=== PATIENT | male | born 1970 | race Hispanic/Latino ===

== ENCOUNTER 2016-10-07 20:33 | Emergency (ER) | payer OTHER ==
[~2016-10-07] VITALS: Ht 180.3 cm; Wt 95.5 kg
[~2016-10-07 20:33] MED LIST: CIPR500T95; CYCL5TAB PO; FLA500; LORA10CA PO; NAPR500T5 PO; NPR500T PO; OXYC-176; TRIA10.8 NS
[2016-10-07 20:39] VITALS: BP 130/89; PULSE 96; RESP 22; O2SAT 97
--- NOTE | 2016-10-07 21:05 | ED.REPORT ---
HPI-General Illness Date of Service Oct 07, 2016 ED Provider: Benny Mckeon MD Mr. Reddy is a 46 y/o man who presents today for generalize aching and malaise and non-productive cough for the past 2-3 days. He also has wheezing, pleuritic chest pain, chills, and subjective fever and chills. His chest feels tight when he coughs retrosternal and on the right side of his ribs. His sons have runny nose and went to the doctor and got OTC medications. He has urinary frequency. He does not have dysuria, hematuria, dyspnea, abdominal pain, diarrhea, or vomiting. He did not get the influenza vaccine this year. He has not taken any ibuprofen or Tylenol today. Nursing Notes Stated Complaint: FLU SYMPTONS Chief Complaint: FLU/Cold Symptoms Nursing Notes Reviewed: Yes Allergies: Coded Allergies: No Known Allergies (Verified , 02/15/16) Scheduled Loratadine (Claritin) 10 Mg Capsule 10 MG PO DAILY Triamcinolone Acetonide (Nasacort) 10.8 Ml [place] 10.8 ML NS DAILY Scheduled PRN Benzonatate (Tessalon Perle) 100 Mg Capsule 200 MG PO TID PRN PRN For Cough Cyclobenzaprine (Cyclobenzaprine) 5 Mg Tablet 5 MG PO TID PRN PRN Spasm Cyclobenzaprine (Cyclobenzaprine) 5 Mg Tablet 5 MG PO TID PRN PRN Spasm Hydrocodone-Acetaminophen 5-325 mg (Hydrocodone-Acetaminophen 5-325 mg) 1 Each Tablet 1-2 TABLET PO TID PRN PRN For Pain Naproxen (Naproxen) 500 Mg Tab 500 MG PO BID PRN PRN For Pain Naproxen (Naproxen) 500 Mg Tablet.dr 500 MG PO BID PRN PRN For Pain Miscellaneous Medications Ciprofloxacin (Cipro) 500 Mg Tablet Oxycodone/APAP-Expunged Drug, Do Not Renew! (Percocet 5/325-Expunged Drug, Do Not Renew!) 1 Each Tablet metroNIDazole-Expunged Drug, Do Not Renew! (Flagyl-Expunged Drug, Do Not Renew! ) 500 Mg Tablet General Time Seen by MD: 21:03 Chief Complaint Cough Hx Obtained From: Patient Sudden in Onset?: Yes Symptom Duration: Since onset Associated with: Reports: Chest pain, Congestion, Fever, Denies: Abdominal pain Past Medical History Past Medical History Denies Past Surgical History Partial colectomy for diverticulitis Smoking History Never Smoker Social History Alcohol Use: "Social" Drug Use: THC Ambulatory Status Independent Review of Systems Full Review of Systems Eyes: Reports: Blurred bilateral (when coughing), Denies: Eye pain bilateral Ears / Nose / Throat: Reports: Nasal congestion, Sore throat, Denies: Earache bilateral Respiratory: Reports: Non-productive cough, Pleuritic pain, Wheezing, Denies: Shortness of breath Cardiovascular: Denies: Palpitations GI: Denies: Abdominal pain, Constipation, Diarrhea, Nausea, Vomiting Male: Reports Urinary frequency, Denies Dysuria, Denies Hematuria, Denies Penile discharge Musculoskeletal: Reports: Back pain, Neck pain Hematologic: Denies Bleeding Skin: Denies Rash Allergy / Immune: Reports: Rhinorrhea Neurologic: Reports: Lightheaded (with coughing) Complete sys rev & neg: except as marked. Physical Exam Vital Signs Vital Signs Date Time Temp Pulse Resp B/P Pulse Ox O2 Delivery O2 Flow Rate FiO2 10/07/16 20:39 37.9 96 22 130/89 97 Initial VS: Reviewed General/Constitutional: Well-developed, Well-nourished Head / Eyes: Atraumatic, Normocephalic, PERRL ENT: Mucous membranes moist, Conjunctiva normal, No scleral icterus Neck: Supple, Non-tender, Full range of motion Cardiovascular: Regular rate & rhythm, Heart sounds normal, Intact distal pulses Abdomen / GI: Soft, Non-tender, No guarding, No rebound, No distention Extremities: Vascular intact, Neuro intact, No swelling, No tenderness Skin: Warm, Dry, No cyanosis Neurologic: Alert, Oriented, Nonfocal Psychiatric: Mood/affect normal, Behavior normal, Normal thought content General/Constitutional: Awake, Alert, Well appearing Appearance / Presentation: Negative: Ill appearing/not toxic Fatigued, but not toxic Patient appears adequately hydrated. Pharynx / Tonsils / Uvula: Positive: Pharyngeal erythema Respiratory / Chest: Breath sounds = bilat, No respiratory distress, No retractions, No crepitus Wheezing / Retractions: Positive: Wheezing mild (bilaterally) Rales / Rhonchi: Positive: Rhonchi fine R Patient is not dyspniec but does have cough and bronchospams Skin: Atraumatic, Color NL, No rash, Warm, Dry Neurologic: Oriented X3, Speech NL, CN II - XII intact Negative Kernig and Brudzinski signs Interpretation & Diagnostics Interpretation & Diagnostics: Rapid influenza A and B negative CXR is not concerning for pneumonia Lab Results Interpretation Test 10/07/16 21:20 Urine Color Yellow (YELLOW) Urine Appearance Clear (CLEAR,HAZY) Urine pH 6.0 (5.0-8.0) Urine Specific [place] 1.025 (1.003-1.035) Urine Protein Negativemg/dL (NEG,TRACE) Urine Glucose (UA) Negativemg/dL (NEGATIVE) Urine Ketones Negativemg/dL (NEGATIVE) Urine Occult Blood Negative (NEGATIVE) Urine Nitrite Negative (NEGATIVE) Urine Bilirubin Negative (NEGATIVE) Urine Urobilinogen Normalmg/dL (NORMAL) Urine Leukocyte Esterase Negative (NEGATIVE) Urine RBC 0-2/hpf (0-2) Urine WBC 0-5/hpf (0-5) Urine Epithelial Cells Few/hpf (NONE-MOD) Urine Crystals None seen (NONE SEEN) Urine Bacteria Few/hpf (NONE-FEW) Urine Hyaline Casts None/lpf (NONE) Urine Granular Casts None seen (NONE SEEN) Urine Waxy Casts None seen (NONE SEEN) Urine Red Blood Cell Casts None seen (NONE SEEN) Urine White Blood Cell Casts None seen (NONE SEEN) Urine Mucus Present (None Seen) Urine Trichomonas None seen (NONE SEEN) Urine Yeast None (NONE SEEN) Urinalysis Comment None Urine Culture Reflexed Not indicated X-Ray Chest Interpretation Chest Xray Interpretation: Negative for acute disease per my interpretation Interpretation / Wet Read by: Wet read ED physician Re-Eval/Medical Decision Med Decision/Clinical Course 1. cough -Negative rapid influenza A and B -UA is not concerning for a UTI -CXR is not concerning for pneumonia -Pt given Tylenol and hydrocodone-APAP for pain control in the ED -Pt also given dexamethasone PO and an albuterol inhaler for wheezing and Tessalon pearls for his cough This is a 46-year-old male presents with terrible body aches, sweats chills, cough. He is presenting in the middle influenza season and has a high test probability for influenza. He has no prior history of asthma, but is mildly bronchospastic. He is fatigued and uncomfortable. He has not had a flu shot. He has no prior history of respiratory illness or disease. Although his formal flu swab is negative, I mean highly suspicious for influenza given the poor sensitivity of the test still suspect influenza-like illness. A chest x-ray was negative for infiltrate per my interpretation. The patient's been treated symptomatically. His vitals are adequate, he has aborderline fever, but is not hypoxic, tachycardic, hypotensive. I do not find indication for blood work, and there is no indication for admission. He appears adequately hydrated. Routine care was discussed. Regarding the need for hydration. The patient is interested in a muscle relaxant, I recommended NSAIDs first, but have relented and written a prescription for some cyclobenzaprine for when necessary use. Patient's receiving an albuterol MDI for use at home. He is discharged in stable condition. Source of Hx: Old records Time of Eval: 11:15 Re-Evaluation/Progress Note: Pt rechecked. Informed pt of diagnosis and plan for treatment. Pt understands and agrees with plan. F/U and RTER warnings given. All questions addressed. Differential Diagnosis: Positive: Influenza, Negative: Pneumonia DDx includes but not limited to: pneumonia, influenza, bronchitis, pharyngitis, UTI, acute viral syndrome, pulmonary embolism, ACS Counseled Regarding: Diagnosis, Lab results, Need for follow-up, When/why to return to ED Discharge & Departure Primary Impression: Influenza-like illness Additional Impression: Acute bronchospasm due to viral infection Disposition: Home Discharge Condition All VS Reviewed: Yes Condition: Stable Additional Instructions: 1. Although your flu test was negative, it is not a perfect test-and your symptoms are highly suggestive of influenza A, which is been going around now. 2. No pneumonia was appreciated on chest x-ray. Your urine test was also normal, therefore there are no findings of a bacterial infection that would require antibiotics. 3. Rest. 4. Take ibuprofen 400 800 mg 3 times a day to help with body aches and chills. 5. Take hydrocodone/APAP 01/11/2025 one to 2 tabs up to 3 times a day. No: This medication contains a narcotic and causes drowsiness. No driving for at least 4-6 hours after taking. 6. Use the albuterol inhaler 2 puffs up to every 4 hours as needed to help with cough and breathing. 7. Take dexamethasone 10 mg (the remainder of the syringe) and empty into some juice and drink tomorrow. This medication also helps with breathing and cough. 8. You can also take Tessalon Perles 200 mg 3 times a day as needed to help with cough as well. 9. This is likely contagious. The most important thing is to cover your mouth and a cough, and wash hands frequently. 10. This particular viral illness makes her feel lousy for a full week before U 10 to recover. (It is not just a "24-48 hour bug") 11. Return if new or worsening symptoms occur 12. As requested, I have written for muscle relaxant cyclobenzaprine for use if needed up to 3 times a day. NOTE: This medication causes drowsiness. Referrals: NOPCP (PCP) Scribe Attestation Portion of this note were transcribed by Erwin Erickson. I, Dr. Mckeon, personally performed the history, physical exam, and medical decision-making: I reviewed and confirmed the accuracy for the information in the transcribed note. Signed by: kiersten Benavides, 10/07/16 1140 Radha Alexander DO Oct 07, 2016 21:05 ERWIN ERICKSON Oct 07, 2016 23:23 Benny Mckeon MD Oct 07, 2016 23:34
[2016-10-07 21:48] LABS: APPEARANCE,URINE CLEAR (CLEAR,HAZY); COLOR,URINE YELLOW (YELLOW); OCCULT BLOOD,URINE NEGATIVE (NEGATIVE); UROBILINOGEN,URINE NORMAL (NORMAL)
[2016-10-07] MEDS ORDERED: _HYDROcodone/APAP 5-325 mg Tablet PO PRN (22:25)
[2016-10-07] MEDS ORDERED: _Albuterol-HFA 60 Puff Inhaler INHALATION PRN (22:25)
[2016-10-07] MEDS ORDERED: Dexamethasone 20 mg/2 mL Oral Solution PO ONE (22:25)
[2016-10-07] MEDS ORDERED: HYDROcodone-APAP 5-325 mg Tablet PO ONE (22:25)
[2016-10-07] MEDS ORDERED: CYCL5TAB PO (23:19)
[2016-10-07] MEDS ORDERED: HYDR-4003 PO (23:19)
[2016-10-07] MEDS ORDERED: BENZ-12 PO (23:19)
[2016-10-07 23:46] VITALS: RESP 18; O2SAT 98
--- NOTE | 2016-10-08 07:54 | DRSVH ---
PROCEDURE: X-RAY CHEST, TWO VIEWS ([id number]) INDICATIONS: body aches, chlls, cough TECHNIQUE: 2 views of the chest were acquired. COMPARISON: [facility], CR, XR CHEST 2VW, 02/15/2016, 21:29. FINDINGS: Surgical changes and devices: Right rotator cuff tendon repair. Lungs and pleura: No pleural effusions or pneumothorax. Lungs are clear. Mediastinum: Mediastinal contours are normal. Heart size is normal. Bones and chest wall: No suspicious bony abnormalities. Soft tissues appear unremarkable. IMPRESSION: No acute cardiopulmonary disease. Dictated by: Sophia Figueroa M.D. on 10/08/2016 at 7:53 Approved by: Sophia Figueroa M.D. on 10/08/2016 at 7:54
== END 2016-10-07 23:47 | disposition home or self-care (01) ==
LOC: SED 20:33
DX: J11.1 Influenza due to unidentified influenza virus with other respiratory manifestations (principal); J98.01 Acute bronchospasm